=== PATIENT | male | born 1945 | race Caucasian/White ===

== ENCOUNTER 2019-06-27 08:25 | Emergency (ER) | payer MEDICARE ==
[2019-06-27 08:35] VITALS: BP 172/81; PULSE 64; RESP 19; TEMP 97.7
--- NOTE | 2019-06-27 09:05 | ED ---
ENT HPI - General Source: patient Mode of arrival: ambulatory Limitations: no limitations <Marium Howard - Last Filed: 06/27/19 09:36> <Nelson Reyes - Last Filed: 06/27/19 16:55> - General Chief complaint: ENT Stated complaint: jaw pain Time Seen by Provider: 06/27/19 08:36 - History of Present Illness Initial comments: 74yo male with history of hearing disorder presenting today for chief complaint of left-sided facial swelling and jaw pain. Patient states just in front of his left ear he is tenderness he states unsure if this is his jaw or relates the ER he states he does wear hearing aids daily and there is irritation to the tragus. Patient states that he noticed facial swelling today and increasing pain at the area is warm to touch. Patient is unsure if he had an infection. Patient denies any dental pain, or palpable abscess. Denies fevers, chest pain shortness of breath, arm of back pain. Patient denies any other symptoms today and appears well on arrival. Afebrie. (Marium Howard) - Related Data Previous Rx's Medication Instructions Recorded Cephalexin [Keflex] 500 mg PO Q6HR 7 Days #28 cap 06/27/19 Clindamycin [Cleocin] 450 mg PO Q8H 7 Days #63 capsule 06/27/19 Allergies Allergy/AdvReac Type Severity Reaction Status Date / Time Penicillins Allergy Rash/Hives Verified 06/27/19 08:34 Review of Systems ROS Other: All systems not noted in ROS Statement are negative. <Marium Howard - Last Filed: 06/27/19 09:36> ROS Other: All systems not noted in ROS Statement are negative. <Nelson Reyes - Last Filed: 06/27/19 16:55> ROS Statement: Those systems with pertinent positive or pertinent negative responses have been documented in the HPI. Past Medical History Past Medical History: Hypertension History of Any Multi-Drug Resistant Organisms: None Reported Past Surgical History: No Surgical Hx Reported Past Psychological History: No Psychological Hx Reported Smoking Status: Never smoker Past Alcohol Use History: Daily Past Drug Use History: None Reported <Marium Howard - Last Filed: 06/27/19 09:36> General Exam Limitations: no limitations <Marium Howard - Last Filed: 06/27/19 09:36> - General Exam Comments Initial Comments: General: The patient is awake and alert, in no distress, and does not appear acutely ill. Eye: +3 mm pupils are equal, round and reactive to light, extra-ocular move ments are intact. No nystagmus. There is normal conjunctiva bilaterally. No signs of icterus. Ears, nose, mouth and throat: There are moist mucous membranes and no oral lesions. No swelling or redness of the external auditory canal however there is redness and irritation noted of the tragus that has a continuous redness anteriorly patient has tenderness to palpation some soft tissue swelling with enlargement preauricular lymph node. Patient has no oral lesions noted or fluctuant abscess to pain to percussion of the teeth. Neck: The neck is supple, there is no tenderness or JVD. Cardiovascular: There is a regular rate and rhythm. No murmur, rub or gallop is appreciated. Respiratory: Lungs are clear to auscultation, respirations are non-labored, breath sounds are equal. No wheezes, stridor, rales, or rhonchi. Musculoskeletal: Normal ROM, no tenderness. Strength 5/5. Sensation intact. Pulses equal bilaterally 2+. Neurological: A&O x 3. CN II-XII intact, There are no obvious motor or sensory deficits. Coordination appears grossly intact. Speech is normal. Skin: Skin is warm and dry and no rashes or lesions are noted. Psychiatric: Cooperative, appropriate mood & affect, normal judgment. (Marium Howard) Course <Nelson Reyes - Last Filed: 06/27/19 16:55> Vital Signs 06/27/19 08:31 Temperature 97.7 F Pulse Rate 64 Respiratory 19 Rate Blood Pressure 172/81 O2 Sat by Pulse 96 Oximetry - Reevaluation(s) Reevaluation #1: 06/27/19 16:55 PA supervision: I proceeded [id number] evaluation the patient he does present with complaints of left TMJ area pain. He denies any trauma. He does use a hearing he states irritates the preauricular area of his face on the left side. He has had no fevers chills or sweats. The examination is consistent with inflammatory response to the preauricular lymph node. he'll be placed on antibiotics and will otherwise follow up with his dentist. He does agree with this and do agree with the assessment and plan. (Nelson Reyes) Medical Decision Making <Marium Howard - Last Filed: 06/27/19 09:36> - Medical Decision Making 74-year-old male presenting for left-sided facial swelling, redness and pain. Wears hearing aids. There is evidence of cellulitis that appears to be originating from the tragus. Patient will be treated with clindamycin per recommendation of attending and keflex. Patient is to f/u with PCP and ENT. Patient evaluated by my attending. He agrees its a HEENT complaint given patient age 14 lead obtained revealing no acute findings. Patient discharged appearing well--agreeable to care plan. (Marium Howard) Disposition Is patient prescribed a controlled substance at d/c from ED?: No Time of Disposition: 09:04 <Marium Howard - Last Filed: 06/27/19 09:36> <Nelson Reyes - Last Filed: 06/27/19 16:55> Clinical Impression: Lymphadenopathy, Swelling of right side of face, Cellulitis of tragus Disposition: HOME SELF-CARE Condition: Good Additional Instructions: Please use medication as discussed. Please follow-up with family doctor in the next 2 days, ENT and dentist.. Please return to emergency room if the symptoms increase or worsen or for any other concerns-fevers, increasing pain, swelling. Prescriptions: Clindamycin [Cleocin] 450 mg PO Q8H 7 Days #63 capsule Cephalexin [Keflex] 500 mg PO Q6HR 7 Days #28 cap Referrals: Varun Henderson MD [Primary Care Provider] - 1-2 days
== END 2019-06-27 09:14 | disposition home or self-care (01) ==
LOC: EC 08:25
DX: H60.12 Cellulitis of left external ear (principal); Z88.0 Allergy status to penicillin; Z97.4 Presence of external hearing-aid
CPT/HCPCS: 93005; 99283

== ENCOUNTER → 2021-06-13 | Outpatient (CLI) | payer MEDICARE ==
--- NOTE | 2021-06-13 11:23 | FL ---
EXAMINATION TYPE: FL barium swallow DATE OF EXAM: 06/13/2021 CLINICAL INDICATION: 76-year-old male R13.10, dysphagia, complains of trouble swallowing and reflux f or years. COMPARISON: None Total Fluoroscopy Time: 2 minutes 12 seconds 42 images obtained. FINDINGS: The swallowing mechanism is normal. There is some strandy appearing areas of coating in the region of the posterior oropharynx. Strands extend from the back side of the epiglottis to the posterior wall suggesting strain the mucous or secretions. Otherwise, the hypopharyngeal anatomy is preserved. The cervical and thoracic portions have a normal course and caliber. Mild tertiary peristaltic waves are demonstrated. The mucosa is normal and no persistent filling defect is encountered. There is a small sliding hiatal hernia. Valsalva and positional manoeuvres demonstrate only mild rubin roesophageal reflux during the course of the exam. IMPRESSION: 1. Mild esophageal dysmotility, likely age related change. 2. Some linear areas in the posterior oropharynx likely retained strandy mucus/secretions. 3. Small sliding hiatal hernia with mild gastroesophageal reflux visualized during the course of the exam.
== END | disposition home or self-care (01) ==
LOC: RADUSWWP 09:56
PROVIDERS: ATTEND Internal Medicine
DX: K21.9 Gastro-esophageal reflux disease without esophagitis (principal); K22.89 Other specified disease of esophagus; K44.9 Diaphragmatic hernia without obstruction or gangrene
CPT/HCPCS: 74220

== ENCOUNTER → 2021-10-18 | Outpatient (CLI) | payer MEDICARE ==
[2021-10-18 14:44] LABS: Basophils % (A) 0 %; Eosinophils # (A) 0.1 k/uL (0-0.7); Eosinophils % (A) 1 %; HCT 44.9 % (39.0-53.0); Lymphocytes # (A) 1.7 k/uL (1.0-4.8); Lymphocytes % (A) 16 %; MCH 31.2 pg (25.0-35.0); MCHC 33.5 g/dL (31.0-37.0); MCV 93.2 fL (80.0-100.0); Mean Platelet Volume 7.2; Monocytes # (A) 0.5 k/uL (0-1.0); Monocytes % (A) 5 %; Neutrophils # (A) 8.4 k/uL (1.3-7.7); Neutrophils % (A) 78 %; Platelet Count 231 k/uL (150-450); RBC 4.82 m/uL (4.30-5.90); RDW 13.3 % (11.5-15.5); WBC 10.9 k/uL (3.8-10.6)
== END | disposition home or self-care (01) ==
LOC: LABWHC1 11:00
PROVIDERS: ATTEND Internal Medicine
DX: D72.829 Elevated white blood cell count, unspecified (principal)
CPT/HCPCS: 36415; 85025

== ENCOUNTER 2022-04-14 08:29 | Day surgery (SDC) | payer MEDICARE ==
[~2022-04-14 08:29] MED LIST: LACTATED RINGERS 1,000 ML IV SCH; LIDOCAINE 1% (10MG/ML) FOR IV START INTRADERMA PRN
[2022-04-14 09:12] VITALS: RESP 16; TEMP 97.1
[2022-04-14] MEDS ORDERED: PROPOFOL 10 MG/ML 20 ML VIAL IV ONE (09:32)
--- NOTE | 2022-04-14 09:55 | P.PCN ---
Date of Procedure: 04/14/22 Procedure(s) Performed: BRIEF HISTORY: Patient is a 76-year-old pleasant male scheduled for an elective colonoscopy as a part of screening for colorectal neoplasia. PROCEDURE PERFORMED: Colonoscopy snare polypectomy and biopsy. PREOPERATIVE DIAGNOSIS: Screening for colon cancer. IV sedation per Anesthesia. PROCEDURE: After informed consent was obtained, the patient, was brought into the endoscopy unit. IV sedation was administered by Anesthesia under continuous monitoring. Digital rectal examination was normal. Initially the Olympus CF-160 flexible video colonoscope was then inserted in the rectum, gradually advanced into the cecum without any difficulty. Careful examination was performed as the scope was gradually being withdrawn. Ileocecal valve and the appendiceal orifice were visualized and appeared normal. Prep was excellent. Mucosa of the cecum, appeared normal. Ascending colon there was a 3 mm polyp that was removed by cold biopsy. There was a 7 mm polyp that was removed by snare polypectomy. In the descending colon there was a 5 mm polyp removed by snare polypectomy. Rest of the ascending colon, transverse colon, descending colon, sigmoid colon, and rectum appeared normal. Retroflexion was performed in the rectum and no lesions were seen. The patient tolerated the procedure well. IMPRESSION: 3 mm ascending colon polyp status post cold biopsy 7 mm ascending colon polyp status post polypectomy 5 mm desscending colon polyp status post polypectomy Small internal hemorrhoids RECOMMENDATIONS: Findings of this examination were discussed with the patient as well as his family. He was advised to follow with the biopsy results. If the biopsy reveals adenoma he can have a repeat colonoscopy in 3 years..
[2022-04-14 09:59] VITALS: BP 106/64
[2022-04-14 10:17] VITALS: PULSE 50
== END 2022-04-14 10:35 | disposition home or self-care (01) ==
LOC: ORWHC2ENDO 08:29
PROVIDERS: ATTEND Internal Medicine Gastroenterology
DX: Z12.11 Encounter for screening for malignant neoplasm of colon (principal); D12.2 Benign neoplasm of ascending colon; K63.5 Polyp of colon; I10 Essential (primary) hypertension; E78.5 Hyperlipidemia, unspecified; Z87.891 Personal history of nicotine dependence; K21.9 Gastro-esophageal reflux disease without esophagitis; Z88.0 Allergy status to penicillin; Z80.0 Family history of malignant neoplasm of digestive organs; Z79.890 Hormone replacement therapy; Z79.899 Other long term (current) drug therapy
CPT/HCPCS: 88305; 45380; 45385; J2704

== ENCOUNTER → 2022-08-25 | Outpatient (CLI) | payer MEDICARE ==
[2022-08-25 10:31] LABS: Creatinine,Urine Random 34.4 mg/dL; Protein/Creatinine Ratio,Urine 0.378
[2022-08-25 14:41] LABS: Basophils # (A) 0.06 X 10*3/uL (0.00-0.10); Basophils % (A) 0.6 %; Eosinophils # (A) 0.26 X 10*3/uL (0.04-0.35); Eosinophils % (A) 2.7 %; HCT 44.8 % (39.6-50.0); HGB 14.8 g/dL (13.0-17.0); Immature Grans, Automated 0.3 %; Lymphocytes # (A) 2.04 X 10*3/uL (0.90-5.00); Lymphocytes % (A) 21.3 %; MCH 29.8 pg (27.0-32.0); MCV 90.1 fL (80.0-97.0); Mean Platelet Volume 9.3 fL (9.5-12.2); Monocytes % (A) 7.3 %; NRBC Per 100 WBC 0 /100 WBCS (0.0-0.0); Neutrophils # (A) 6.51 X 10*3/uL (1.80-7.70); Neutrophils % (A) 67.8 %; Platelet Count 203 X 10*3/uL (140-440); RBC 4.97 X 10*6/uL (4.40-5.60); RDW 12.6 % (11.5-14.5)
[2022-08-25 14:55] LABS: % Iron Saturation 38.04 (15.00-50.00); ALT 33 U/L (10-49); AST 30 U/L (14-35); African American GFR (CKD) 89.5 (60.0-200.0); Albumin 4.8 g/dL (3.8-4.9); Albumin/Globulin Ratio 2.15 (1.60-3.17); Alkaline Phosphatase 61 U/L (41-126); BUN/Creat Ratio 15.03 Ratio (12.00-20.00); Blood Urea Nitrogen 14.4 mg/dL (9.0-27.0); Calcium 9.6 mg/dL (8.7-10.3); Carbon Dioxide 26.6 mmol/L (20.0-27.5); Chloride 103 mmol/L (96-109); Globulin 2.2 g/dL (1.6-3.3); Glucose 110 mg/dL (70-110); Iron 131 ug/dL (65-175); Magnesium 2.2 mg/dL (1.5-2.4); Non-African American GFR(CKD) 77.2 (60.0-200.0); Phosphorus 2.8 mg/dL (2.4-5.1); Sodium 142 mmol/L (135-145); Total Iron Binding Capacity 344 ug/dL (228-460); Uric Acid 6.1 mg/dL (3.7-8.7)
[2022-08-25 15:02] LABS: Chol/HDL Ratio 2.46 Ratio; LDL Cholesterol,Calculated 68.2 mg/dL (0.0-131.0); VLDL Calculation 16.68 mg/dL (5.00-40.00)
[2022-08-25 15:28] LABS: Appearance,Urine Clear (Clear); Bilirubin,Urine Negative (Negative); Blood,Urine Negative (Negative); Color,Urine Yellow (Yellow); Ketones,Urine Negative (Negative); Nitrite,Urine Negative (Negative); PH, Urine 7.5 (5.0-8.0); Specific Gravity,Urine 1.009 (1.001-1.030); Urobilinogen,Urine 0.2 (0.2,1.0)
== END | disposition home or self-care (01) ==
LOC: LABWHC1 09:03
PROVIDERS: ATTEND Internal Medicine
DX: I12.9 Hypertensive chronic kidney disease with stage 1 through stage 4 chronic kidney disease, or unspecified chronic kidney disease (principal); E78.2 Mixed hyperlipidemia; N40.0 Benign prostatic hyperplasia without lower urinary tract symptoms; N18.31 Chronic kidney disease, stage 3a
CPT/HCPCS: 36415; 80053; 80061; 81003; 82306; 82570; 82728; 83036; 83540; 83550; 83735; 83883; 83970; 84100; 84153; 84156; 84439; 84443; 84550; 85025

== ENCOUNTER → 2024-06-13 | Outpatient (CLI) | payer MEDICARE ==
--- NOTE | 2024-06-13 09:22 | XR ---
EXAMINATION TYPE: XR chest 2V DATE OF EXAM: 06/13/2024 9:07 AM COMPARISON: None CLINICAL INDICATION: Male, 79 years old with history of R05.1 COUGH; [facility] TECHNIQUE: XR chest 2V Frontal and lateral views of the chest. FINDINGS: Lungs/Pleura: There is no evidence of pleural effusion, focal consolidation, or pneumothorax. Pulmonary vascularity: Unremarkable. Heart/mediastinum: Cardiomediastinal silhouette is unremarkable. Musculoskeletal: No acute osseous pathology. IMPRESSION: No acute cardiopulmonary disease/process. [facility], , 06/13/2024 9:20 AM
== END | disposition home or self-care (01) ==
LOC: RADXRMAIN 08:56
PROVIDERS: ATTEND Internal Medicine
DX: R05.1 Acute cough (principal)
CPT/HCPCS: 71046